=== PATIENT | male | born 1950 | race Caucasian/White ===

== ENCOUNTER 2018-07-13 07:56 | Emergency (ER) | payer OTHER ==
[2018-07-13] MEDS ORDERED: NOREPINEPHRINE 8 MG/250ML KIT 250 ML IV ONE (08:13)
[2018-07-13 08:23] VITALS: BP 96/72
[2018-07-13 08:24] LABS: Basophils # (auto) 0 uL; Basophils % (auto) 0.1 % (0.0-2.0); Eosinophils # (auto) 0 uL; Eosinophils % (auto) 0.1 % (0.0-7.0); Hemoglobin 14.3 g/dL (13.5-17.5); Lymphocytes # (auto) 1.6 uL; Lymphocytes % (auto) 28.9 % (10.0-50.0); Mean Corpuscular Hemoglobin 31.8 pg (28.0-32.0); Mean Corpuscular Hgb Conc. 33.2 g/dL (32.0-36.0); Mean Corpuscular Volume 95.8 fL (80.0-100.0); Monocytes # (auto) 0.3 uL; Monocytes % (auto) 5.4 % (0.0-12.0); Neutrophils # (auto) 3.7 uL; Neutrophils % (auto) 65.5 % (37.0-80.0); Nucleated Red Blood Cells % 0.1 %; Platelet Count (auto) 266 10^3/uL (140-450); Red Blood Cells 4.49 10^6/uL (4.5-5.90); Red Cell Distribution Width 13.9 % (11.8-14.3); White Blood Cell 5.7 10^3/uL (4.4-10.8)
[2018-07-13] MEDS ORDERED: MIDAZOLAM DRIP 50 mg/50mL 50 ML IV ONE (08:25)
[2018-07-13 08:42] LABS: Alanine Aminotransferase 38 U/L (16-61); Albumin 2.8 g/dL (3.4-5.0); Anion Gap 11 (5-15); Aspartate Aminotransferase 29 U/L (15-37); BUN/Creatinine Ratio 20.4; Blood Urea Nitrogen 21 mg/dL (7-18); Calcium 8.6 mg/dL (8.5-10.1); Carbon Dioxide 31 mmol/L (21-32); Chloride 106 mmol/L (98-107); GFR African American 92 mL/min; GFR Non-African American 76 mL/min; Glucose 240 mg/dL (74-106); Magnesium 2.8 mg/dL (1.6-2.6); Potassium 3.2 mmol/L (3.5-5.1); Sodium 148 mmol/L (136-145)
[2018-07-13 08:44] LABS: Lactic Acid w/Reflex 4.9 mmol/L (0.4-2.0)
[2018-07-13 08:47] LABS: Alkaline Phosphatase 62 U/L (45-117); Bilirubin, Total 0.6 mg/dL (0.2-1.0); Total Protein 6.1 g/dL (6.4-8.2)
[2018-07-13] MEDS ORDERED: SODIUM BICARBONATE 8.4% INJ 50ML SYRINGE ONE (08:51)
[2018-07-13] MEDS ORDERED: MORPHINE SULFATE 4 MG/ML SYR/VIAL ONE (09:34)
[2018-07-13] MEDS ORDERED: LORazepam 2MG/ML-1ML VIAL ONE (09:35)
[2018-07-13] MEDS ORDERED: MORPHINE SULFATE 4 MG/ML SYR/VIAL IV ONE (10:00)
[2018-07-13] MEDS ORDERED: LORazepam 2MG/ML-1ML VIAL IV ONE (10:00)
== END 2018-07-13 13:47 | disposition expired ==
LOC: ER 07:56 → EDBD 07:56 → ER 13:47
DX: I46.9 Cardiac arrest, cause unspecified (principal); E78.5 Hyperlipidemia, unspecified; I10 Essential (primary) hypertension
CPT/HCPCS: 31500; 36415; 36556; 36600; 51702; 80053; 82805; 83605; 83735; 84484; 85025; 87040; 87070; 87077; 87186; 87205; 92950; 96374; 96375; 99291; J2060; J2250; J2270; 94002